=== PATIENT | male | born 1970 | race Native Hawaiian/Other Pacific Islander ===

== ENCOUNTER → 2021-01-29 | Outpatient (CLI) | payer OTHER, BC ==
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
--- NOTE | 2021-01-29 20:10 | Diagnostic Imaging Report ---
INDICATION: Back pain COMPARISON: Imaging from the same date. TECHNIQUE: 3 radiographs of the lumbar spine dated 01/29/2021. FINDINGS: Partial sacralization of the L5 vertebral body. Alignment of the lumbar spine is well maintained. Vertebral body heights and disc spaces are well-maintained. No acute fracture or dislocation. No destructive osseous process. The sacroiliac joints are intact. No suspicious radiopaque foreign body. Minimal facet joint degenerative changes. IMPRESSION: No acute osseous abnormality with minimal degenerative changes present. Dictated by: Dictated on workstation # [id number]
== END ==
LOC: RAD 19:07
PROVIDERS: ATTEND Nurse Practitioner Family
DX: M54.41 Lumbago with sciatica, right side (principal); M54.6 Pain in thoracic spine; V89.2XXA Person injured in unspecified motor-vehicle accident, traffic, initial encounter
CPT/HCPCS: 72072; 72100